=== PATIENT | female | born 1945 | race Caucasian/White ===

== ENCOUNTER 2022-05-02 04:32 | Emergency (ER) | payer MEDICARE ==
[2022-05-02] MEDS ORDERED: Metoprolol Tartrate 5 MG/5 ML VIAL ONE (05:20)
[2022-05-02 05:44] LABS: #Basophils 0.1 thou/uL (0.0-0.2); #Eosinphils 0.3 thou/uL (0.0-0.7); #Lymphocytes 2.6 thou/uL (1.20-3.40); #Monocytes 0.6 thou/uL (0.11-0.59); #Neutrophils 3.2 thou/uL (1.40-6.50); %Basophils 1.1 % (0.0-1.0); %Eosinophils 4.7 % (0.0-10.0); %Neutrophils 47.1 % (42.0-75.0); Hemoglobin 13.1 g/dL (12.0-16.0); Mean Corpuscular HGB CONC 33.6 g/dL (32.0-36.0); Mean Corpuscular Hemoglobin 29.4 pg (27.0-31.0); Mean Corpuscular Volume 87.5 fl (78.0-98.0); Mean Platelet Volume 8.7 fL (7.4-10.4); Platelet Count 239 10x3/uL (130-400); RBC Distribution Width 13.3 % (11.5-14.5); Red Blood Cell (RBC) Count 4.48 mill/uL (4.20-5.40); White Blood Cell (WBC) Count 6.9 10x3/uL (4.8-10.8)
[2022-05-02 05:55] LABS: ALT (SGPT) 12 U/L (8-55); AST (SGOT) 14 U/L (5-34); Albumin 4.1 g/dL (3.4-4.8); Anion Gap 12 mmol/L (10-20); BUN (Urea Nitrogen) 16 mg/dL (9.8-20.1); Bilirubin, Total 0.4 mg/dL (0.2-1.2); Calc. Creatinine Clearance 0 mL/min (70-130); Calcium 9.4 mg/dL (7.8-10.44); Carbon Dioxide 24 mmol/L (23-31); Chloride 108 mmol/L (98-107); Estimated GFR 79; Globulin 3.2 g/dL (2.4-3.5); Glucose 102 mg/dL (83-110); Potassium 3.9 mmol/L (3.5-5.1); Protein, Total 7.3 g/dL (5.8-8.1); Sodium 140 mmol/L (136-145)
[2022-05-02 06:01] LABS: Alkaline Phosphatase 74 U/L (40-110)
== END 2022-05-02 06:28 | disposition home or self-care (01) ==
LOC: BURERS 04:32
DX: R00.2 Palpitations (principal); I10 Essential (primary) hypertension; E78.00 Pure hypercholesterolemia, unspecified; E03.9 Hypothyroidism, unspecified; Z79.899 Other long term (current) drug therapy
CPT/HCPCS: 36415; 71045; 80053; 83605; 83880; 84443; 84484; 85025; 85379; 93005

== ENCOUNTER 2024-02-02 14:02 | Outpatient (CLI) | payer MEDICARE | END 2024-02-02 14:03 | disposition home or self-care (01) | LOC: BUREKG 14:02 | PROVIDERS: ATTEND Physician Assistant | DX: R07.89 Other chest pain (principal) | CPT/HCPCS: 93005; 93010 ==

== ENCOUNTER 2024-04-14 12:42 | Emergency (ER) | payer MEDICARE ==
[2024-04-14] MEDS ORDERED: Metoclopramide HCl 10 MG TAB ONE (13:51)
== END 2024-04-14 14:36 | disposition home or self-care (01) ==
LOC: BURERS 12:42
DX: G43.B0 Ophthalmoplegic migraine, not intractable (principal); I10 Essential (primary) hypertension; E03.9 Hypothyroidism, unspecified; Z79.899 Other long term (current) drug therapy
CPT/HCPCS: 70450